=== PATIENT | male | born 1960 | race Caucasian/White ===

== ENCOUNTER 2021-08-18 18:58 | Emergency (ER) | payer OTHER ==
[2021-08-18 19:07] VITALS: BP 113/61; PULSE 64; TEMP 98.4; BMI 31.2
== END 2021-08-18 21:57 | disposition home or self-care (01) ==
LOC: JERFT 18:58
DX: Z48.00 Encounter for change or removal of nonsurgical wound dressing (principal)
CPT/HCPCS: 99281-25

== ENCOUNTER 2023-04-18 02:21 | Emergency (ER) | payer OTHER ==
[2023-04-18 02:37] VITALS: BP 175/99; PULSE 85; RESP 20; TEMP 98.1; BMI 31.7
[2023-04-18] MEDS ORDERED: chlordiazePOXIDE HCL 25 MG CAPSULE PO ONE (03:08)
[2023-04-18] MEDS ORDERED: chlordiazePOXIDE HCL 25 MG CAPSULE ONE (03:26)
== END 2023-04-18 04:00 | disposition short-term general hospital (02) ==
LOC: JER 02:21
DX: F10.99 Alcohol use, unspecified with unspecified alcohol-induced disorder (principal); F41.9 Anxiety disorder, unspecified
CPT/HCPCS: 99283-25

== ENCOUNTER 2023-04-18 04:52 | Inpatient (IN) | payer OTHER ==
[2023-04-18 05:17] VITALS: BMI 31.3
[2023-04-18] MEDS ORDERED: LOPERAMIDE HCL 2 MG CAPSULE PO PRN (05:30)
[2023-04-18] MEDS ORDERED: DICYCLOMINE HCL 10 MG CAPSULE PO PRN (05:30)
[2023-04-18] MEDS ORDERED: POLYETHYLENE GLYCOL (HEALTHYLAX) 3350 17 GM PACKET PO PRN (05:30)
[2023-04-18] MEDS ORDERED: MAGNESIUM HYDROX 2400MG/30ML ORAL SUSPENSION 30 ML CUP PO PRN (05:30)
[2023-04-18] MEDS ORDERED: NALOXONE HCL 0.4 MG/ML VIAL IM PRN (05:30)
[2023-04-18] MEDS ORDERED: NALOXONE HCL (KLOXXADO) 8 MG SPRAY NS PRN (05:30)
[2023-04-18] MEDS ORDERED: MAG HYDROX/AL HYDROX/SIMETH 30 ML UNIT-DOSE CUP PO PRN (05:30)
[2023-04-18] MEDS ORDERED: ONDANSETRON *ODT* 4 MG TABLET SL PRN (05:30)
[2023-04-18] MEDS ORDERED: BENZONATATE 200 MG CAPSULE PO PRN (05:30)
[2023-04-18] MEDS ORDERED: BISMUTH SUBSALICYLATE 524 MG/30 ML PO PRN (05:30)
[2023-04-18] MEDS ORDERED: guaiFENesin 600 MG TABLET.ER (FP) PO PRN (05:30)
[2023-04-18] MEDS ORDERED: IBUPROFEN 400 MG TABLET (FP) PO PRN (05:30)
[2023-04-18] MEDS ORDERED: chlordiazePOXIDE HCL 25 MG CAPSULE PO PRN (05:30)
[2023-04-18] MEDS ORDERED: ACETAMINOPHEN 325 MG TABLET (FP) PO PRN (05:30)
[2023-04-18] MEDS ORDERED: BENZOCAINE/MENTHOL (CHLORASEPTIC ) LOZENGE MM PRN (05:30)
[2023-04-18] MEDS ORDERED: IBUPROFEN 600 MG TABLET (FP) PO PRN (05:30)
[2023-04-18 09:42] LABS: HEMATOCRIT 44.8 % (35.4-49); HEMOGLOBIN 15.7 GM/dL (11.7-16.9); MCH 31.6 pg (25.7-33.7); MCHC 35.1 g/dl (32.0-35.9); MEAN PLT VOLUME 8.2 fl (7.5-11.1); PLATELET COUNT 237 10^3/uL (134-434); RBC 4.98 M/mm3 (4.00-5.60); RDW 12.7 % (11.9-15.9); WHITE BLOOD COUNT 9.9 K/mm3 (4.0-10.0)
[2023-04-18] MEDS: chlordiazePOXIDE HCL 25 MG CAPSULE PO SCH ×3 (10:08→22:07)
[2023-04-18] MEDS: PRENATAL VITAMINS W/ FOLIC ACID TABLET (FP) PO SCH (10:08)
[2023-04-18 10:20] LABS: POTASSIUM 3.9 mmol/L (3.5-5.1)
[2023-04-18 10:24] LABS: ALBUMIN 3.7 g/dl (3.4-5.0); BLOOD UREA NITROGEN 10.9 mg/dL (7-18)
[2023-04-18 10:27] LABS: CREATININE 0.8 mg/dL (0.55-1.3)
[2023-04-18 10:29] LABS: BILIRUBIN,TOTAL 0.8 mg/dL (0.2-1); TOT PROT 7.6 g/dl (6.4-8.2)
[2023-04-18 12:06] LABS: HIV INTERPRETATION NEGATIVE (NEGATIVE)
[2023-04-18] MEDS: propRANOLol HCL 10 MG TABLET PO SCH ×2 (17:30→22:28)
[2023-04-18] MEDS ORDERED: MELATONIN 5 MG TABLETS PO SCH (22:00)
[2023-04-18] MEDS: THIAMINE HCL 100 MG TABLET (FP) PO SCH (22:07)
[2023-04-18] MEDS: SUVOREXANT 10 MG TABLET PO PRN (22:08)
[2023-04-19] MEDS: chlordiazePOXIDE HCL 25 MG CAPSULE PO SCH ×4 (05:43→22:19)
[2023-04-19] MEDS: propRANOLol HCL 10 MG TABLET PO SCH ×4 (05:43→22:18)
[2023-04-19] MEDS: PRENATAL VITAMINS W/ FOLIC ACID TABLET (FP) PO SCH (10:18)
[2023-04-19 17:20] LABS: EPI CELLS 13 /uL (0-25.1); HYALINE CASTS 1 /uL (0-3.1); PH,URINE 7.5 (5.0-8.0); URINE APPEARANCE CLEAR; URINE BACTERIA 33 /uL (0-1359); URINE BILIRUBIN NEGATIVE (NEGATIVE); URINE COLOR YELLOW; URINE GLUCOSE (UA) NEGATIVE (NEGATIVE); URINE KETONE NEGATIVE (NEGATIVE); URINE LEUK ESTERASE 1+ (NEGATIVE); URINE NITRITE NEGATIVE (NEGATIVE); URINE PROTEIN NEGATIVE (NEGATIVE); URINE RBC 25 /uL (0-23.9); URINE WBC 23 /uL (0-25.8)
[2023-04-19] MEDS: THIAMINE HCL 100 MG TABLET (FP) PO SCH (22:18)
[2023-04-19] MEDS: SUVOREXANT 10 MG TABLET PO PRN (22:21)
[2023-04-20] MEDS: propRANOLol HCL 10 MG TABLET PO SCH ×4 (05:44→22:04)
[2023-04-20] MEDS: chlordiazePOXIDE HCL 25 MG CAPSULE PO SCH ×4 (05:44→22:04)
[2023-04-20] MEDS: PRENATAL VITAMINS W/ FOLIC ACID TABLET (FP) PO SCH (10:10)
[2023-04-20] MEDS: THIAMINE HCL 100 MG TABLET (FP) PO SCH (22:04)
[2023-04-20] MEDS: SUVOREXANT 10 MG TABLET PO PRN (22:04)
[2023-04-21] MEDS ORDERED: chlordiazePOXIDE HCL 10 MG CAPSULE PO PRN
[2023-04-21] MEDS ORDERED: chlordiazePOXIDE HCL 10 MG CAPSULE PO SCH (05:00)
[2023-04-21] MEDS: propRANOLol HCL 10 MG TABLET PO SCH (05:48)
[2023-04-21 06:49] VITALS: RESP 17
[2023-04-21 09:34] VITALS: BP 132/76; PULSE 65; TEMP 96.8
[2023-04-22] MEDS ORDERED: chlordiazePOXIDE HCL 10 MG CAPSULE PO SCH (05:00)
[2023-04-23] MEDS ORDERED: chlordiazePOXIDE HCL 10 MG CAPSULE PO ONE (05:00)
== END 2023-04-21 09:16 | disposition home or self-care (01) | DRG 775 ==
LOC: YASAS 04:52 → Y6N 05:20
PROVIDERS: ADMIT Allergy & Immunology; ATTEND Allergy & Immunology
PROC: HZ2ZZZZ Detoxification Services for Substance Abuse Treatment (ICD-10-PCS; principal; 2023-04-18)
DX: F10.230 Alcohol dependence with withdrawal, uncomplicated (principal); F10.280 Alcohol dependence with alcohol-induced anxiety disorder; F10.24 Alcohol dependence with alcohol-induced mood disorder; F10.282 Alcohol dependence with alcohol-induced sleep disorder; F19.24 Other psychoactive substance dependence with psychoactive substance-induced mood disorder; F41.9 Anxiety disorder, unspecified; F32.A Depression, unspecified; R73.9 Hyperglycemia, unspecified; Z87.19 Personal history of other diseases of the digestive system
CPT/HCPCS: 36415; 80053; 81003; 83036; 85027; 86780; 87389; 87635; 93005; 93010

== ENCOUNTER 2023-10-27 04:17 | Day surgery (SDC) | payer OTHER ==
[2023-10-25 13:58] VITALS: BMI 30.8
[~2023-10-27 04:17] MED LIST: IOHEXOL 180 MG/1 ML ML IJ ONE; LIDOCAINE HCL 1% PRESERVATIVE FREE - 30ML VIAL EP ONE
[2023-10-27] MEDS ORDERED: LIDOCAINE HCL/PF 1% SDV 5ML VIAL ONE (07:29)
[2023-10-27] MEDS ORDERED: DEXAMETHASONE SOD PHOSPHATE 10 MG/1 ML VIAL ONE (07:30)
[2023-10-27 07:34] VITALS: RESP 18
[2023-10-27] MEDS ORDERED: LIDOCAINE HCL 1% PRESERVATIVE FREE - 30ML VIAL EP ONE (09:42)
[2023-10-27] MEDS ORDERED: IOHEXOL 180 MG/1 ML ML IJ ONE (09:42)
[2023-10-27 11:01] VITALS: BP 128/78; PULSE 62; TEMP 98
[2023-10-27] MEDS ORDERED: ACETAMINOPHEN 500 MG TABLET (FP) PO PRN (14:28)
== END 2023-10-27 10:30 | disposition home or self-care (01) ==
LOC: JASU-SURG 04:17
PROVIDERS: ATTEND Pain Medicine Pain Medicine
PROC: 3E0R3BZ Introduction of Anesthetic Agent into Spinal Canal, Percutaneous Approach (ICD-10-PCS; 2023-10-27)
PROC: 3E0R33Z Introduction of Anti-inflammatory into Spinal Canal, Percutaneous Approach (ICD-10-PCS; principal; 2023-10-27 09:45)
DX: M54.16 Radiculopathy, lumbar region (principal)
CPT/HCPCS: 76000-TC-FY; J1100